=== PATIENT | female | born 1955 | race Caucasian/White ===

== ENCOUNTER 2017-03-25 17:08 | Emergency (ER) | payer OTHER ==
[~2017-03-25] VITALS: Ht 167.6 cm; Wt 54.0 kg
[2017-03-25 17:21] VITALS: BP 100/64; PULSE 59; RESP 18; O2SAT 99
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
[2017-03-25 19:00] LABS: BASOPHILS % (AUTO) 0.4 % (0-3); EOSINOPHILS % (AUTO) 2.7 % (0-5); MONOCYTES % (AUTO) 8.3 % (4-12); Mean Corpuscular Hemoglobin 31.1 pg (27.0-35.0); Mean Corpuscular Volume 94.2 fL (81-100); NEUTROPHILS % (AUTO) 52.1 % (40-74); Platelet Count 266 bil/L (150-400)
[2017-03-25 19:35] LABS: TROPONIN T < 0.010 ug/L (0.0-0.011)
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
[2017-03-25 20:18] VITALS: BP 110/66; PULSE 54; RESP 16; O2SAT 100
== END 2017-03-25 20:19 | disposition home or self-care (01) ==
LOC: SED 17:08
DX: S13.4XXA Sprain of ligaments of cervical spine, initial encounter (principal); S06.0X0A Concussion without loss of consciousness, initial encounter; V43.51XA Car driver injured in collision with sport utility vehicle in traffic accident, initial encounter; Y92.410 Unspecified street and highway as the place of occurrence of the external cause; Y93.89 Activity, other specified; Y99.8 Other external cause status; R11.0 Nausea; M25.551 Pain in right hip; E21.3 Hyperparathyroidism, unspecified